=== PATIENT | female | born 1980 | race Caucasian/White ===

== ENCOUNTER 2017-07-17 12:29 | Outpatient (CLI) | payer MEDICAID ==
[2017-07-17 15:26] LABS: ADD UMIC NO; UR ASCORBIC ACID NEGATIVE (NEGATIVE); UR BILIRUBIN (Dip) NEGATIVE (NEGATIVE); UR BLOOD (Dip) NEGATIVE (NEGATIVE); UR CLARITY CLEAR (CLEAR); UR COLOR STRAW (YELLOW); UR GLUCOSE (Dip) NEGATIVE (NEGATIVE); UR KETONES (Dip) NEGATIVE (NEGATIVE); UR LEUKOCYTE ESTERASE (Dip) NEGATIVE Leu/ul (NEGATIVE); UR NITRITE (Dip) NEGATIVE (NEGATIVE); UR SPECIFIC GRAVITY (Dip) 1.004 (1.003-1.030); UR TOTAL PROTEIN (Dip) NEGATIVE (NEGATIVE); UR UROBILINOGEN (Dip) NEGATIVE (NEGATIVE)
== END 2017-07-17 16:30 | disposition home or self-care (01) ==
LOC: OBT 12:29 → L-D 12:30 → OBT 16:30
DX: O62.9 Abnormality of forces of labor, unspecified (principal); O09.523 Supervision of elderly multigravida, third trimester; Z3A.29 29 weeks gestation of pregnancy
CPT/HCPCS: 76817; 76818; 81003; 82731

== ENCOUNTER 2017-09-29 00:15 | Inpatient (IN) | payer MEDICAID ==
[2017-09-29] MEDS ORDERED: OXYTOCIN 30 UNITS/LR 500 ML IV ×2 (02:00)
[2017-09-29] MEDS ORDERED: BUTORPHANOL 2 MG INJ IV (02:00)
[2017-09-29] MEDS ORDERED: IBUPROFEN 600 MG TAB PO (02:00)
[2017-09-29] MEDS ORDERED: LIDOCAINE 1% (MPF) 30 ML INJ INJ (02:00)
[2017-09-29] MEDS ORDERED: MISOPROSTOL 200 MCG TAB PR (02:00)
[2017-09-29] MEDS ORDERED: METHYLERGONOVINE 0.2 MG INJ IM (02:00)
[2017-09-29] MEDS ORDERED: CARBOPROST 250 MCG INJ IM (02:00)
[2017-09-29] MEDS: LACTATED RINGER'S 1,000 ML IV ×3 (02:59→18:16)
[2017-09-29 03:45] LABS: ADD MAN DIFF? NO
[2017-09-29 04:06] LABS: WHITE BLOOD COUNT 5.8 10^3/ul (4.8-10.8)
[2017-09-29 04:06] LABS: BASOPHILS % 0.3 % (0.0-2.0); EOSINOPHILS % 0.7 % (0.0-7.0); HEMATOCRIT 32.2 % (37.0-47.0); HEMOGLOBIN 11.1 g/dl (12.0-16.0); LYMPHOCYTES # 1.6 10^3/ul (0.8-2.9); LYMPHOCYTES % 27.1 % (15.0-51.0); MEAN CORPUSCULAR HEMOGLOBIN 31.8 pg (29.0-33.0); MEAN CORPUSCULAR HGB CONC 34.5 g/dl (32.0-37.0); MEAN CORPUSCULAR VOLUME 92.3 fl (82.0-101.0); MEAN PLATELET VOLUME 11.3 fl (7.4-10.4); MONOCYTE # 0.4 10^3/ul (0.3-0.9); MONOCYTES % 6.4 % (0.0-11.0); NEUTROPHIL # 3.8 10^3/ul (1.6-7.5); PLATELET COUNT 223 10^3/UL (140-415); RED BLOOD COUNT 3.49 10^6/ul (4.20-5.40); RED CELL DISTRIBUTION WIDTH 13.8 % (11.5-14.5)
[2017-09-29 04:08] LABS: INR 0.93; PROTIME 12.6 Sec (11.9-14.9)
[2017-09-29 04:09] LABS: PARTIAL THROMBOPLASTIN TIME 28.5 Sec (25.0-35.0)
[2017-09-29 05:08] LABS: RUPTURE FETAL MEMBRANES NEGATIVE (NEGATIVE)
[2017-09-29 15:18] LABS: RAPID PLASMA REAGIN NONREACTIVE (NR)
[2017-09-30] MEDS: LACTATED RINGER'S 1,000 ML IV ×4 (02:14→21:58)
[2017-09-30] MEDS ORDERED: NALOXONE (0.4 MG/ML) INJ IV (22:00)
[2017-10-01] MEDS: AMPICILLIN 2 GM/NS (PMX) 100 ML IVPB (03:08)
[2017-10-01] MEDS: FENTAnyl 2MCG/ML-ROPIV 0.2% 100 ML BAG EPI (05:35)
[2017-10-01] MEDS: LACTATED RINGER'S 1,000 ML IV ×3 (06:22→21:41)
[2017-10-01] MEDS: AMPICILLIN 1 GM/NS (PMX) 50 ML IVPB (06:45)
[2017-10-01] MEDS: CITRIC ACID/SODIUM CITRATE 15 ML CUP PO (09:09)
[2017-10-01] MEDS ORDERED: LIDOCAINE 1.5%/EPI MPF (SDV) 30 ML VIAL (09:28)
[2017-10-01] MEDS ORDERED: ONDANSETRON 4 MG INJ (09:30)
[2017-10-01] MEDS ORDERED: METOCLOPRAMIDE 10 MG INJ (09:30)
[2017-10-01] MEDS ORDERED: KETOROLAC 30 MG INJ (09:30)
[2017-10-01] MEDS ORDERED: morphine SULFATE/PF (10 MG/10 ML) INJ (09:30)
[2017-10-01] MEDS ORDERED: EPHEDrine SULFATE 50 MG/5 ML SYG (09:59)
[2017-10-01] MEDS ORDERED: OXYTOCIN 30 UNITS/LR 500 ML IV ×2 (10:24→16:30)
[2017-10-01] MEDS ORDERED: morphine 2 MG INJ IV ×3 (13:30)
[2017-10-01] MEDS ORDERED: ONDANSETRON 4 MG INJ IV ×2 (13:30)
[2017-10-01] MEDS ORDERED: morphine (1 MG/ML) 10ML SYRINGE IV ×3 (13:30)
[2017-10-01] MEDS ORDERED: NALOXONE (0.4 MG/ML) INJ IV (13:30)
[2017-10-01] MEDS ORDERED: DIPHENHYDRAMINE 50 MG INJ IV (13:30)
[2017-10-01] MEDS: OXYTOCIN 30 UNITS/LR 500 ML IV (15:05)
[2017-10-01] MEDS: CEFAZOLIN 2 GM/50 ML (PMX) 50 ML IVPB (16:20)
[2017-10-01] MEDS: CEFAZOLIN 2 GM/50 ML (PMX) 50 ML IV (16:30)
[2017-10-01] MEDS ORDERED: OXYCODONE/ACETAMINOPHEN (5/325) TAB PO (16:30)
[2017-10-01] MEDS ORDERED: CARBOPROST 250 MCG INJ IM (16:30)
[2017-10-01] MEDS ORDERED: NA PHOSPHATE/BIPHOS 133 ML ENEMA PR (16:30)
[2017-10-01] MEDS ORDERED: MISOPROSTOL 200 MCG TAB PR (16:30)
[2017-10-01] MEDS ORDERED: METHYLERGONOVINE 0.2 MG INJ IM (16:30)
[2017-10-01] MEDS: VANCOMYCIN 1 GM (PMX) 250 ML IVPB (17:13)
[2017-10-01] MEDS: LANOLIN 7 GM TUBE TOP (17:13)
[2017-10-01] MEDS: SENNA/DOCUSATE NA (8.6MG/50MG) TAB PO (21:41)
[2017-10-02] MEDS: LACTATED RINGER'S 1,000 ML IV ×2 (00:15→07:00)
[2017-10-02] MEDS: CLINDAMYCIN 300 MG CAP PO ×5 (00:51→23:36)
[2017-10-02] MEDS: CEFAZOLIN 2 GM/50 ML (PMX) 50 ML IV ×2 (00:52→08:13)
[2017-10-02] MEDS: KETOROLAC 30 MG INJ IV ×2 (00:59→08:13)
[2017-10-02] MEDS: SENNA/DOCUSATE NA (8.6MG/50MG) TAB PO ×2 (08:13→21:00)
[2017-10-02 10:31] LABS: ADD MAN DIFF? NO
[2017-10-02 10:35] LABS: BASOPHIL # 0.1 10^3/ul (0.0-0.1); BASOPHILS % 0.4 % (0.0-2.0); EOSINOPHILS # 0.1 10^3/ul (0.0-0.5); EOSINOPHILS % 0.6 % (0.0-7.0); HEMATOCRIT 25.9 % (37.0-47.0); HEMOGLOBIN 8.7 g/dl (12.0-16.0); LYMPHOCYTES # 1.6 10^3/ul (0.8-2.9); LYMPHOCYTES % 12.9 % (15.0-51.0); MEAN CORPUSCULAR HEMOGLOBIN 31.4 pg (29.0-33.0); MEAN CORPUSCULAR HGB CONC 33.6 g/dl (32.0-37.0); MEAN CORPUSCULAR VOLUME 93.5 fl (82.0-101.0); MEAN PLATELET VOLUME 10.8 fl (7.4-10.4); MONOCYTE # 0.7 10^3/ul (0.3-0.9); MONOCYTES % 5.8 % (0.0-11.0); NEUTROPHIL # 9.9 10^3/ul (1.6-7.5); NEUTROPHILS % 79.9 % (39.0-77.0); PLATELET COUNT 172 10^3/UL (140-415); RED BLOOD COUNT 2.77 10^6/ul (4.20-5.40); RED CELL DISTRIBUTION WIDTH 14.1 % (11.5-14.5)
[2017-10-02 10:35] LABS: WHITE BLOOD COUNT 12.4 10^3/ul (4.8-10.8)
[2017-10-02] MEDS: HYDROCODONE/APAP (5/325) TAB PO ×2 (12:20→20:01)
[2017-10-02] MEDS: IBUPROFEN 800 MG TAB PO ×2 (15:02→22:07)
[2017-10-02] MEDS: BISACODYL 10 MG SUPP PR (17:42)
[2017-10-03] MEDS: IBUPROFEN 800 MG TAB PO ×3 (05:37→21:47)
[2017-10-03] MEDS: CLINDAMYCIN 300 MG CAP PO ×2 (05:38→12:16)
[2017-10-03 08:59] LABS: ADD MAN DIFF? NO
[2017-10-03 09:10] LABS: WHITE BLOOD COUNT 9.6 10^3/ul (4.8-10.8)
[2017-10-03 09:10] LABS: BASOPHILS % 0.3 % (0.0-2.0); EOSINOPHILS # 0.1 10^3/ul (0.0-0.5); EOSINOPHILS % 1.4 % (0.0-7.0); HEMATOCRIT 24.8 % (37.0-47.0); HEMOGLOBIN 8.2 g/dl (12.0-16.0); LYMPHOCYTES # 1.7 10^3/ul (0.8-2.9); LYMPHOCYTES % 17.3 % (15.0-51.0); MEAN CORPUSCULAR HEMOGLOBIN 31.2 pg (29.0-33.0); MEAN CORPUSCULAR HGB CONC 33.1 g/dl (32.0-37.0); MEAN CORPUSCULAR VOLUME 94.3 fl (82.0-101.0); MEAN PLATELET VOLUME 11.3 fl (7.4-10.4); MONOCYTE # 0.5 10^3/ul (0.3-0.9); MONOCYTES % 5.6 % (0.0-11.0); NEUTROPHIL # 7.2 10^3/ul (1.6-7.5); NEUTROPHILS % 74.9 % (39.0-77.0); PLATELET COUNT 167 10^3/UL (140-415); RED BLOOD COUNT 2.63 10^6/ul (4.20-5.40); RED CELL DISTRIBUTION WIDTH 14.3 % (11.5-14.5)
[2017-10-03] MEDS: SENNA/DOCUSATE NA (8.6MG/50MG) TAB PO ×2 (09:18→21:12)
[2017-10-03] MEDS ORDERED: PENDING SANTYL ORDER FOR WOUND CARE XX (12:00)
[2017-10-03] MEDS: HYDROCODONE/APAP (5/325) TAB PO ×2 (15:16→23:48)
[2017-10-03] MEDS: CIPROFLOXACIN 500 MG TAB PO (17:23)
[2017-10-03] MEDS ORDERED: metroNIDAZOLE 500 MG TAB PO ×2 (21:00→22:00)
[2017-10-03] MEDS: TRIMETHOPRIM/SULFAMETHOX (DS) TAB PO (21:12)
[2017-10-04] MEDS: IBUPROFEN 800 MG TAB PO ×2 (05:46→14:14)
[2017-10-04] MEDS: CIPROFLOXACIN 500 MG TAB PO (05:46)
[2017-10-04] MEDS: DIPHTH/TET/ACEL PERTUSS (ADULT) 0.5 ML VIAL IM* (09:00)
[2017-10-04] MEDS: SENNA/DOCUSATE NA (8.6MG/50MG) TAB PO (09:17)
[2017-10-04] MEDS: TRIMETHOPRIM/SULFAMETHOX (DS) TAB PO (09:17)
== END 2017-10-04 16:02 | disposition home or self-care (01) | DRG 765 ==
LOC: OBT 00:15 → L-D 09-30 20:06 → OBT 01:35 → PP1 10-01 16:06 → L-D 01:35
PROVIDERS: Obstetrics & Gynecology
PROC: 10D00Z1 Extraction of Products of Conception, Low, Open Approach (ICD-10-PCS; principal; 2017-10-01 10:00)
DX: O66.41 Failed attempted vaginal birth after previous cesarean delivery (principal); L03.317 Cellulitis of buttock; L89.329 Pressure ulcer of left buttock, unspecified stage; Z3A.40 40 weeks gestation of pregnancy; Z37.0 Single live birth
CPT/HCPCS: 62319; 76815; 84112; 85025; 85610; 85730; 86592; 86850; 86900; 86901; 99464